=== PATIENT | male | born 1970 | race Two or more races ===

== ENCOUNTER 2017-10-05 05:01 | Inpatient (IN) | payer OTHER ==
[~2017-10-05] VITALS: Ht 170.2 cm; Wt 103.4 kg
[2017-10-05] MEDS ORDERED: ANESTHESIA TRAY IN PYXIS 1 EA TRAY MC ONE (06:45)
[2017-10-05] MEDS ORDERED: HEMOSTATIC MATRIX 10 ML 1 EACH PAD MC ONE (06:46)
[2017-10-05] MEDS ORDERED: FENTANYL PF 250MCG/5ML AMPUL ONE ×2 (07:01→07:03)
[2017-10-05] MEDS ORDERED: MIDAZOLAM HCL 2 MG/2ML VIAL ONE (07:01)
[2017-10-05] MEDS ORDERED: SUCCINYLCHOLINE CHLORIDE 20 MG/ML VIAL ONE (07:02)
[2017-10-05] MEDS ORDERED: HYDROMORPHONE INJ 2 MG/ML DISP.SYRIN ONE (07:02)
[2017-10-05] MEDS ORDERED: KETAMINE HCL (500MG/10ML) 50 MG/ML VIAL ONE (07:03)
[2017-10-05] MEDS ORDERED: ROCURONIUM BROMIDE 50 MG/5 ML ONE (07:04)
[2017-10-05] MEDS ORDERED: PROPOFOL 100 ML ONE (07:04)
[2017-10-05] MEDS ORDERED: HEPARIN SODIUM, PORCINE 5000 UNITS/1 ML VIAL ONE (07:12)
[2017-10-05] MEDS ORDERED: GENTAMICIN 80 MG/2 ML VIAL ONE ×2 (08:24→08:26)
[2017-10-05] MEDS ORDERED: THROMBIN (BOVINE) 5,000 UNITS VIAL TP ONE (08:41)
[2017-10-05] MEDS ORDERED: GELATIN SPONGE,ABSORBABLE 1 EA SPONGE TP ONE (08:41)
[2017-10-05] MEDS ORDERED: PROPOFOL 10MG/ML 50ML 50 ML IV PRN (09:00)
[2017-10-05] MEDS ORDERED: CEFAZOLIN SODIUM/DEXTROSE,ISO 50 ML IV ONE (09:05)
[2017-10-05 14:20] VITALS: BP 105/58
--- NOTE | 2017-10-05 14:20 | NUR ---
BARBER RN NOTES PATIENT RETURNED FROM SURGERY. DR TEMPLETON AT BEDSIDE. PATIENT OBTUNDED AND SEDATED STILL FROM SURGERY. PER MD PATIENT WILL BE OBTUNDED FOR A FEW HOURS HE WAS GIVEN MORE PAIN MEDICATIONS TO ASSIST WITH PAIN CONTROL. PATIENT UNABLE TO MOVE BLE AT THIS TIME. WILL MONITOR Q4H PER MD ORDER. GWEN SEVERELY WEAK AT THIS TIME. NC STABLE 96%. HOB ELEVATED FOR ASPIRATION PRECAUTIONS. WATSON IN PLACE DRAINING WELL. IV'S INTACT AND PATENT. BED ALARM ON. FAMILY AT BEDSIDE. ORDERS GIVEN BY MD AND WILL BE CARRIED OUT.
[2017-10-05 14:35] VITALS: BP 98/62
[2017-10-05 14:37] LABS: HEMATOCRIT 41 % (39-51); HEMOGLOBIN 14.1 g/dL (13.5-17.5); LYMPHOCYTES % (AUTO) 5.4 % (20.0-44.0); MEAN CORPUSCULAR HEMOGLOBIN 33 PG (26.0-33.0); MEAN CORPUSCULAR HGB CONC 35 g/dl (31.0-36.0); MEAN CORPUSCULAR VOLUME 95 fL (80-96); MONOCYTES # (AUTO) 0.7 /CMM (0.1-1.30); MONOCYTES % (AUTO) 3.7 % (2.0-12.0); NEUTROPHILS # (AUTO) 17.3 /CMM (1.8-8.9); NEUTROPHILS % (AUTO) 90.9 % (43.0-81.0); PLATELET COUNT (AUTO) 241 /CMM (150-450); RDW COEFFICIENT OF VARIATION 13.2 (11.5-15.0); RED BLOOD CELL COUNT(AUTO) 4.32 MIL/uL (4.5-6.0)
[2017-10-05 14:48] LABS: CALCIUM, SERUM 8.2 mg/dL (8.5-10.1); CREATININE 1.3 mg/dL (0.6-1.3); POTASSIUM 4.1 mmol/L (3.5-5.1)
[2017-10-05 14:50] VITALS: BP 104/61
[2017-10-05] MEDS ORDERED: ZOLPIDEM TARTRATE 5 MG TABLET PO PRN (15:00)
[2017-10-05] MEDS ORDERED: ACETAMINOPHEN 325 MG TABLET PO PRN (15:00)
[2017-10-05] MEDS ORDERED: IV PREMIX D5 NS + KCL 1,000 ML IV PRN (15:00)
[2017-10-05] MEDS ORDERED: HYDROMORPHONE 1 MG/1 ML DISP.SYRIN IV PRN (15:00)
[2017-10-05] MEDS ORDERED: HYDROCODONE/APAP 10/325MG 1 EA TABLET PO PRN ×2 (15:00)
[2017-10-05] MEDS ORDERED: DOCUSATE SODIUM 100 MG CAPSULE PO PRN (15:00)
[2017-10-05 15:05] VITALS: BP 106/63
[2017-10-05 16:00] VITALS: BP 105/56
[2017-10-05] MEDS: ANCEF 1 GM/50 ML D5W IV SCH ×4 (16:30→23:25)
[2017-10-05] MEDS ORDERED: ONDANSETRON HCL/PF 4 MG/2 ML VIAL IV PRN (16:30)
[2017-10-05] MEDS: METHOCARBAMOL (750MG) 750 MG TABLET PO SCH ×2 (16:53→20:30)
[2017-10-05] MEDS: ACETAMINOPHEN 325 MG TABLET PO SCH ×2 (16:53→21:00)
--- NOTE | 2017-10-05 17:09 | NUR ---
BARBER PECK NOTES PATIENT ABLE TO MOVE BLE AND PUSH AND PULL ON HANDS WITH FOOT. TOES MOVING. HAS SENSATION TO UPPER AND LOWER LEGS. PULSES PRESENT AND INTACT. ABLE TO INDEPENDENTLY MOVE BUE AND EQUAL STRENGTH. Addendum: 10/05/17 at 1714 by JASON MOSS RN Amended: Links added.
--- NOTE | 2017-10-05 19:17 | NUR ---
TD RN CLOSING: PATIENT AWAKE AND ALL NEEDS MET. ALL DUE MEDS GIVEN. NO EPISODE OF VOMITING. PRN ANTIEMETIC MED WAS ADMINISTERED ORDERED. ALL NEEDS IN REACH. SAFETY PRECAUTIONS OBSERVED. TELE- NSR. IV FLUID RUNNING ORDERED. PATIENT STABLE AT THIS TIME. ENDORSED TO RN FOR HORTENCIA.
[2017-10-05 20:00] VITALS: BP 125/65
[2017-10-06] VITALS: BP 104/60
[2017-10-06] MEDS: METHOCARBAMOL (750MG) 750 MG TABLET PO SCH ×6 (00:44→20:30)
[2017-10-06 04:00] VITALS: BP 113/64
[2017-10-06] MEDS: ACETAMINOPHEN 325 MG TABLET PO SCH ×3 (04:50→22:05)
[2017-10-06] MEDS ORDERED: FENTANYL PF 250MCG/5ML AMPUL ONE ×2 (06:44→06:47)
[2017-10-06] MEDS ORDERED: HYDROMORPHONE INJ 2 MG/ML DISP.SYRIN ONE (06:45)
[2017-10-06] MEDS ORDERED: SUCCINYLCHOLINE CHLORIDE 20 MG/ML VIAL ONE (06:45)
[2017-10-06] MEDS ORDERED: KETAMINE HCL (500MG/10ML) 50 MG/ML VIAL ONE (06:45)
[2017-10-06] MEDS ORDERED: PROPOFOL 100 ML ONE ×4 (06:46→13:45)
[2017-10-06] MEDS ORDERED: GENTAMICIN 80 MG/2 ML VIAL ONE (06:46)
[2017-10-06] MEDS ORDERED: ANESTHESIA TRAY IN PYXIS 1 EA TRAY MC ONE (06:48)
[2017-10-06] MEDS ORDERED: CEFAZOLIN 1 GM ONE (06:49)
[2017-10-06] MEDS ORDERED: HEMOSTATIC MATRIX 10 ML 1 EACH PAD MC ONE (06:49)
--- NOTE | 2017-10-06 07:00 | NUR ---
RN INITIAL NOTES: PT ALREADY PICKED UP BY OR STAFF FOR SCHEDULED PROCEDURE TODAY.
--- NOTE | 2017-10-06 07:00 | NUR ---
LIV INITIAL NOTES: PT SCHEDULED FOR ANTERIOR LUMBAR INTERBODY FUSIONS OF L4-S1 C/O DR. ANGUIANO TODAY. PT PICKED UP ALREADY BY OR STAFF. Addendum: 10/06/17 at 1612 by ALBA ALVARADO RN CORRECTION: ERROR ON DOCUMENTATION
[2017-10-06 07:03] LABS: CALCIUM, SERUM 8.3 mg/dL (8.5-10.1); POTASSIUM 4.5 mmol/L (3.5-5.1)
[2017-10-06 07:13] LABS: BASOPHILS % (AUTO) 0.1 % (0.0-2.0); HEMATOCRIT 38 % (39-51); LYMPHOCYTES # (AUTO) 1.5 /CMM (0.8-4.8); LYMPHOCYTES % (AUTO) 9.2 % (20.0-44.0); MEAN CORPUSCULAR HEMOGLOBIN 33 PG (26.0-33.0); MEAN CORPUSCULAR HGB CONC 35 g/dl (31.0-36.0); MEAN CORPUSCULAR VOLUME 95 fL (80-96); MONOCYTES # (AUTO) 1.3 /CMM (0.1-1.30); MONOCYTES % (AUTO) 8.3 % (2.0-12.0); NEUTROPHILS % (AUTO) 82.4 % (43.0-81.0); PLATELET COUNT (AUTO) 243 /CMM (150-450); RDW COEFFICIENT OF VARIATION 13.1 (11.5-15.0); RED BLOOD CELL COUNT(AUTO) 3.96 MIL/uL (4.5-6.0); WHITE BLOOD COUNT (AUTO) 15.7 K/uL (4.3-11.0)
[2017-10-06] MEDS ORDERED: HEPARIN SODIUM, PORCINE 5000 UNITS/1 ML VIAL ONE (07:52)
[2017-10-06] MEDS ORDERED: VANCOMYCIN 1 GM VIAL ONE ×2 (08:56→14:01)
[2017-10-06] MEDS ORDERED: FENTANYL PF 100MCG/2ML AMPUL ONE ×2 (10:57→11:01)
[2017-10-06] MEDS ORDERED: NALOXONE HCL 0.4 MG/ML AMPUL IV PRN (16:00)
[2017-10-06] MEDS ORDERED: oxyCODONE IR immediate release 5 MG PO PRN (16:00)
--- NOTE | 2017-10-06 16:16 | NUR ---
RN NOTES: PER DR. MARQUEZ, CALL HIM AT [phone] FOR ANY CONCERN. PT WILL BE ON PURIFICATION OPERATOR PUMP PLUS PO PAIN MEDICATIONS. MAY START DIET AND ADVANCE TOLERATED. WILL BE ON IV ABX ANCEF X 9 DOSES. ON SPINE PRECAUTIONS. CAN INCREASE HOB. WOUND DRESSING WILL BE DONE C/O MD. EXPECT PT TO BE DISORIENTED D/T ANESTHESIA.
[2017-10-06] MEDS: TRAMADOL HCL 50 MG TABLET PO SCH (17:00)
[2017-10-06] MEDS ORDERED: HYDROMORPHONE MDV 30 MG in IV NS 0.9% 15 ML, PCA TOTAL VOLUME 1 BAG IV PRN ×3 (17:00)
[2017-10-06] MEDS ORDERED: KEY,NONCONTROL,TO KEEP IN PYXI 1 EA MC ONE (17:15)
[2017-10-06 17:52] VITALS: BP 124/65
[2017-10-06 18:00] VITALS: BP 124/68
[2017-10-06] MEDS: Potassium Chloride 20 MEQ in IV D5/ 0.9% NACL 1,000 ML IV PRN (18:41)
--- NOTE | 2017-10-06 18:49 | NUR ---
RN CLOSING NOTES: 1752h REC'D PT FROM BEVERAGE INSPECTION MACHINE TENDER LISETH VIA BED ACCOMPANIED BY FAMILY. PT TRANSFERRED TO ROOM 101, ELIZABETH STATUS. PT IS AWAKE BUT DROWSY/SEDATED, DENIES ANY PAIN & DISCOMFORT AT THIS TIME. ON NC AT 2LPM, NO SOB, SATING AT 98%. ON TELEMONITOR, SR W/ HR 115 BPM. HAS 2 IV LINE ACCESS - R WRIST G18 AND L HAND G20, BOTH FLUSHING WELL W/ NO S/SX OF INFECTION/INFILTRATION NOTED. HAS FC DRAINING TO ADEQUATE URINE OUTPUT. NOTED CLEAN, DRY & INTACT SURGICAL DRESSING ON THE ABDOMEN. BLE NEUROVASCULAR CHECKS DONE, + PEDAL PULSES AND PT ABLE TO MOVE BLE. CARRIED OUT POST OP ORDERS OF DR. ANGUIANO. 1800h PHARMACY ANALYST PUMP DILAUDID STARTED W/ CLAU RAHMAN & NIGEL. PT & FAMILY EDUCATED ON HOW TO USE PHARMACY ANALYST PUMP W/ VERBALIZATION OF UNDERSTANDING. PT PROVIDED COMFORT & SAFETY MEASURES. BED KEPT LOW & IN LOCKED POS. CALL LIGHT PLACED W/IN REACH. WILL ENDORSE TO PM RN FOR HORTENCIA.
--- NOTE | 2017-10-06 19:30 | NUR ---
ELIZABETH RN INITIAL NOTES RECEIVED PATIENT AWAKE A/OX3, ABLE TO MAKE NEEDS KNOWN, LETHARGIC, ABLE TO ANSWER QUESTIONS. FAMILY AT BEDSIDE. DENIES N/V, DENIES PAIN OR DISCOMFORT AT THIS TIME. NO RESPIRATORY DISTRESS NOTED, ON 2LPMO2 VIA NC. SKIN WARM AND DRY TO TOUCH. ON TELE MONITOR ST 101. PATIENT ABLE TO WIGGLE TOES, PEDAL PULSED PALPABLE. WITH F/C PATENT AND INTACT, DRAINING BY GRAVITY. WITH RW 18G PATENT AND INTACT WITH D5W 20MEQ KCL AT 75 ML/HR RUNNING. WITH LH 20G PATENT AND INTACT, WITH DILAUDID 1MG/1ML, SET AT 0.5MG. PATIENT PRESSED BUTTON ONCE PER HISTORY. DR. TEMPLETON AT BEDSIDE. PER MD OK FOR PATIENT TO HAVE HOB 30 DEGREES, OK TO TURN SIDE TO SIDE FOR SHORT PERIODS. OK TO TAKE MEDICATIONS IF PATIENT IS ABLE TO DRINK WATER WITH NO COMPLICATIONS. SIDE RAILS UP AND LOCKED. BED KEPT AT LOWEST POSITION. CALL LIGHT KEPT WITHIN EASY REACH. WILL CONTINUE TO MONITOR.
[2017-10-06 20:00] VITALS: BP 125/80
[2017-10-06] MEDS: CEFAZOLIN 1 GM in IV D5W 50 ML IV SCH (21:56)
--- NOTE | 2017-10-06 22:00 | NUR ---
PATIENT MORE AWAKE, NO C/O PAIN OR DISCOMFORT. HAD PATIENT DRINK SOME WATER, PATIENT WITH NO DIFFICULTY IN SWALLOWING. WILL GIVE PO MEDICATIONS. PROVIDED TEACHING AND DEMONSTRATION OF INCENTIVE SPIROMETER, PATIENT VERBALIZED UNDERSTANDING. WILL CONTINUE TO MONITOR.
[2017-10-07] VITALS: BP 132/79
[2017-10-07] MEDS: METHOCARBAMOL (750MG) 750 MG TABLET PO SCH ×6 (00:30→20:17)
[2017-10-07] MEDS: TRAMADOL HCL 50 MG TABLET PO SCH ×3 (00:33→17:00)
--- NOTE | 2017-10-07 00:34 | NUR ---
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 WILL CONTINUE TO MONITOR.
[2017-10-07 04:00] VITALS: BP 138/88
[2017-10-07] MEDS: ACETAMINOPHEN 325 MG TABLET PO SCH ×3 (04:48→21:34)
[2017-10-07] MEDS: CEFAZOLIN 1 GM in IV D5W 50 ML IV SCH ×3 (04:48→21:34)
[2017-10-07 06:43] LABS: BASOPHILS % (AUTO) 0.3 % (0.0-2.0); HEMATOCRIT 36 % (39-51); HEMOGLOBIN 12.4 g/dL (13.5-17.5); LYMPHOCYTES # (AUTO) 1.5 /CMM (0.8-4.8); LYMPHOCYTES % (AUTO) 8.5 % (20.0-44.0); MEAN CORPUSCULAR HEMOGLOBIN 33 PG (26.0-33.0); MEAN CORPUSCULAR HGB CONC 35 g/dl (31.0-36.0); MEAN CORPUSCULAR VOLUME 95 fL (80-96); MONOCYTES # (AUTO) 1.8 /CMM (0.1-1.30); MONOCYTES % (AUTO) 10.6 % (2.0-12.0); NEUTROPHILS # (AUTO) 13.8 /CMM (1.8-8.9); NEUTROPHILS % (AUTO) 80.6 % (43.0-81.0); PLATELET COUNT (AUTO) 233 /CMM (150-450); RDW COEFFICIENT OF VARIATION 13.6 (11.5-15.0); RED BLOOD CELL COUNT(AUTO) 3.74 MIL/uL (4.5-6.0); WHITE BLOOD COUNT (AUTO) 17.1 K/uL (4.3-11.0)
--- NOTE | 2017-10-07 07:00 | NUR ---
RN CLOSING NOTES: NO ACUTE CHANGES NOTED W/IN SHIFT. DENIED ANY PAIN/DISCOMFORT THE WHOLE SHIFT. ON ROOM AIR, NO SOB. OFF TELEMONITOR. 2 IV LINE ACCESS - R WRIST G18 & R HAND G20 SL, KEPT PATENT & INTACT W/ NO S/SX OF INFECTION/INFILTRATION. OFF FC, PT ABLE TO USE URINAL W/O DIFFICULTY. STILL NOTED STRONG BILATERAL PEDAL PULSES. PT WAS ABLE TO USE I.S WHILE AWAKE. SURGICAL INCISION ON THE ABDOMEN AND BACK KEPT CLEAN, DRY & INTACT, NO DISCHARGE NOTED. PT ABLE TO MOVE INDEPENDENTLY ON BED. PT OFF PLEXIGLAS FORMER PUMP. KEPT WELL RESTED. NEEDS ATTENDED. BED KEPT LOW & IN LOCKED POS. CALL LIGHT PLACED W/IN REACH. WILL ENDORSE TO PM RN FOR HORTENCIA. REC'D CALL FROM DR. ANGUIANO AND UPDATED HIM ABOUT PT CONDITION. HE SAID HE WILL COME TODAY & VISIT THE PT. Addendum: 10/07/17 at 1922 by ALBA ALVARADO RN CORRECTION: ERROR ON DOCUMENTING TIME.
[2017-10-07 07:05] LABS: CREATININE 0.9 mg/dL (0.6-1.3); POTASSIUM 4.6 mmol/L (3.5-5.1)
--- NOTE | 2017-10-07 07:10 | NUR ---
RN INITIAL NOTES: REC'D PT AWAKE ON BED, A/O X 4, NOT IN ANY DISTRESS, DENIES ANY PAIN/DISCOMFORT AT THIS TIME. ON NC AT 2LPM, SATING AT 100%. ON TELEMONITOR, ST W/ HR 101 BPM. HAS 2 IV LINE ACCESS - R WRIST G18 W/ D5NS + 20 MEQS KCL X 75 CC/HR INFUSING WELL, R HAND G20 W/ DAIRY MANUFACTURING TECHNOLOGIST DILAUDID INFUSION. HAS FC PATENT & INTACT DRAINING TO ADEQUATE URINE OUTPUT. NOTED STRONG BILATERAL PEDAL PULSES. INSTRUCTED PT TO USE I.S EVERY HOUR WHILE AWAKE W/ VERBALIZATION OF UNDERSTANDING. SURGICAL INCISION ON THE ABDOMEN AND BACK W/ CLEAN, DRY & INTACT DRESSING, NO DISCHARGE NOTED. PROVIDED COMFORT & SAFETY MEASURES. BED KEPT LOW & IN LOCKED POS. CALL LIGHT PLACED W/IN REACH. WILL CONTINUE TO MONITOR AND ATTEND PT NEEDS.
--- NOTE | 2017-10-07 07:35 | NUR ---
ELIZABETH RN CLOSING NOTES NO SIGNIFICANT CHANGES OVERNIGHT. ALL NEEDS ANTICIPATED AND MET. NO RESPIRATORY DISTRESS NOTED. NO C/O PAIN OR DISCOMFORT. NO C/O NV. F/C IN PLACE, PATENT AND INTACT, DRAINING BY GRAVITY. IVF D5NS WITH 20MEQ KCL RUNNING AT 75ML/HR AND BRANCH OPERATION EVALUATION MANAGER DILAUDID. PATIENT USED 1.5MG/1.5ML THIS SHIFT, CLEARED VOLUME. SIDE RAILS UP AND LOCKED. BED KEPT AT LOWEST POSITION. CALL LIGHT KEPT WITHIN EASY REACH. CONTINUITY OF CARE ENDORSED TO AM NURSE.
[2017-10-07 08:00] VITALS: BP 142/92
[2017-10-07] MEDS: Potassium Chloride 20 MEQ in IV D5/ 0.9% NACL 1,000 ML IV PRN (09:18)
--- NOTE | 2017-10-07 09:30 | NUR ---
RN NOTES: PT SEEN & EXAMINED BY DR. TEMPLETON W/ NEW ORDERS MADE & CARRIED OUT. SURGICAL INCISION SEEN BY . CALLED PT FOR FOLLOW UP RE: EVAL & GAIT TRAINING.
[2017-10-07] MEDS: GABAPENTIN 300 MG CAPSULE PO SCH ×3 (11:20→17:14)
[2017-10-07 12:00] VITALS: BP 129/76
--- NOTE | 2017-10-07 12:00 | NUR ---
RN NOTES: PT REQUESTED TO DC WATSON CATHETER BECAUSE IT'S HURTING HIM. FC REMOVED, PT ABLE TO URINATE. PT SEEN BY PHYSICAL THERAPIST AND WAS ABLE TO GET PT OUT OF BED. PER THERAPIST & PT, HE FELT A LITTLE DIZZY AND LEG WEAKNESS. HE WAS ABLE TO STAND BUT WASN'T ABLE TO WALK. PER THERAPIST, PT NEEDS BACK BRACE AND RECOMMENDED ARU/SNF. P.T. RECOMMENDATION RELAYED TO DR. ABURTO W/ ORDERS TO MAXIMIZE PT GAIT TRAINING HERE WHILE PT IN THE HOSPITAL. HE WILL ASK DR. GARCIA ABOUT THE BRACE. PER DR. ABURTO, OKAY TO DC CURRENT IVF D5NS + 20 MEQS KCL X 75 CC/HR. CALLED AND PHYSICAL THERAPIST AND INFORMED HER ABOUT THE PLAN OF THE MD. PT NOT IN ANY DISTRESS AFTER THE THERAPY, DENIES ANY PAIN.
[2017-10-07 16:00] VITALS: BP 112/64
--- NOTE | 2017-10-07 16:00 | NUR ---
RN NOTES: DR. TEMPLETON MADE AWARE THAT PT IS NOT USING SPANISH LITERATURE PROFESSOR PUMP. MD ORDERED TO STOP IT. AND PER , NO NEED FOR BACK BRACE PER DR. GARCIA.
[2017-10-07] MEDS ORDERED: oxyCODONE IR immediate release 5 MG PO PRN ×2 (16:30)
[2017-10-07] MEDS ORDERED: KEY,NONCONTROL,TO KEEP IN PYXI 1 EA MC ONE (17:18)
--- NOTE | 2017-10-07 18:26 | NUR ---
RN NOTES: DR. TEMPLETON MADE AWARE THAT PT FEELS DIZZY AND SLEEP EVERYTIME HE TAKES ROBAXIN. ORDERED TO PUT HOLD FOR NOW.
--- NOTE | 2017-10-07 19:00 | NUR ---
RN CLOSING NOTES: NO ACUTE CHANGES NOTED W/IN SHIFT. DENIED ANY PAIN/DISCOMFORT THE WHOLE SHIFT. ON ROOM AIR, NO SOB. OFF TELEMONITOR. 2 IV LINE ACCESS - R WRIST G18 & R HAND G20 SL, KEPT PATENT & INTACT W/ NO S/SX OF INFECTION/INFILTRATION. OFF FC, PT ABLE TO USE URINAL W/O DIFFICULTY. STILL NOTED STRONG BILATERAL PEDAL PULSES. PT WAS ABLE TO USE I.S WHILE AWAKE. SURGICAL INCISION ON THE ABDOMEN AND BACK KEPT CLEAN, DRY & INTACT, NO DISCHARGE NOTED. PT ABLE TO MOVE INDEPENDENTLY ON BED. PT OFF MARKETING DEVELOPER PUMP. KEPT WELL RESTED. NEEDS ATTENDED. BED KEPT LOW & IN LOCKED POS. CALL LIGHT PLACED W/IN REACH. WILL ENDORSE TO PM RN FOR HORTENCIA. INFORMED RN TO HOLD GIVING ROBAXIN MEDICATION AT THIS TIME PER MD'S ORDER. REC'D CALL FROM DR. ANGUIANO AND UPDATED HIM ABOUT PT CONDITION. HE SAID HE WILL COME TODAY & VISIT THE PT.
--- NOTE | 2017-10-07 19:30 | NUR ---
MS RN INITIAL NOTE PT RECEIVED AWAKE IN BED WITH FAMILY AT BEDSIDE. A/O X4 AND ABLE TO VERBALIZE NEEDS. ON ROOM AIR AND SATURATING 97%. BREATHING REGULAR, EVEN AND UNLABORED. IV R WRIST AND L HAND ARE CLEAN, DRY AND FLUSHING WELL. NO C/O PAIN OR DISCOMFORT AT THIS TIME. SURGEON DR. ANGUIANO AT BEDSIDE WITH PT. STATED TO CONTINUE ANTIBIOTICS, PHYSICAL THERAPY AND GOING HOME THURSDAY. SURGICAL DRESSINGS IN PLACE AND CLEAN. CALL LIGHT WITHIN REACH. WILL CONTINUE TO MONITOR.
[2017-10-07 20:00] VITALS: BP 136/77
--- NOTE | 2017-10-07 20:30 | NUR ---
MS RN NOTE PT REFUSED ROBAXIN 750 MG STATING IT CAUSES DIZZINESS AND HE DOES NOT WANT TO TAKE IT. DR ANGUIANO AWARE. UPON ASSESSMENT PEDAL PULSES PALPABLE, ABLE TO PUSH BACK WITH BOTH FEET AND PT ABLE TO MOVE TOES BILATERALLY. WILL CONTINUE TO MONITOR.
--- NOTE | 2017-10-08 | NUR ---
MS RN NOTE PEDAL PULSES REMAIN PALPABLE +2 BILATERALLY AND ABLE TO MOVE TOES AROUND. NO C/O PAIN AT THIS TIME.
[2017-10-08] MEDS: METHOCARBAMOL (750MG) 750 MG TABLET PO SCH ×6 (00:04→19:59)
[2017-10-08] MEDS: TRAMADOL HCL 50 MG TABLET PO SCH ×3 (00:13→16:16)
--- NOTE | 2017-10-08 01:00 | NUR ---
MS RN NOTE PT REFUSED TRAMADOL 50MG STATING NO PAIN OR DISCOMFORT AT THIS TIME.
[2017-10-08 04:00] VITALS: BP 100/60
[2017-10-08] MEDS: ACETAMINOPHEN 325 MG TABLET PO SCH ×3 (04:12→20:03)
[2017-10-08] MEDS: CEFAZOLIN 1 GM in IV D5W 50 ML IV SCH ×3 (04:13→20:03)
--- NOTE | 2017-10-08 07:30 | NUR ---
MS RN AM NOTE PT RECEIVED AWAKE IN BED, A/O X4 AND ABLE TO VERBALIZE NEEDS. ON ROOM AIR, NOT IN ANY DISTRESS, NBREATHING REGULAR, EVEN AND UNLABORED. IV R WRIST #18 AND L HAND G20, FLUSHES WELL, SITE CLEAR. NO C/O PAIN OR DISCOMFORT AT THIS TIME. S/P L4-5, L5-S1 DISCKECTOMY BY DR ANGUIANO 10/05/2017. SURGICAL DRESSINGS IN PLACE AND CLEAN. TO CHANGE DRESSING. FOR PHYSICAL THERAPY , OPTIMIZED P.T. WHILE IN HOSPITAL, REGULAR DIET. CALL LIGHT WITHIN REACH. WILL CONTINUE TO MONITOR.
--- NOTE | 2017-10-08 07:52 | NUR ---
MS RN CLOSING NOTE PT REMAINED STABLE DURING SHIFT. PEDAL PULSES CHECKED AND PALPABLE. NO C/O PAIN NOTED. KEPT CLEAN AND DRY. ALL NEEDS ATTENDED TO PROMPTLY. NO ACUTE DISTRESS NOTED. WILL ENDORSE TO NEXT SHIFT FOR CONTINUITY OF CARE.
[2017-10-08 08:00] VITALS: BP 112/76
[2017-10-08] MEDS: GABAPENTIN 300 MG CAPSULE PO SCH ×3 (09:01→16:16)
--- NOTE | 2017-10-08 09:30 | NUR ---
MS RN NOTES ADMINISTERED DUE MEDS EXCEPT ROBAXIN AND ULTRAM
--- NOTE | 2017-10-08 11:20 | NUR ---
MS RN NOTES PER DR. ANGUIANO NO BACK BRACE NEEDED. PHYSICAL THERAPY ARIA NOTIFIED.
--- NOTE | 2017-10-08 13:21 | NUR ---
MS RN NOTES STARTED ANCEF IV. SEEN BY PHYSICAL THERAPIST EARLIER. OOB TO CHAIR.
[2017-10-08 16:00] VITALS: BP 139/87
--- NOTE | 2017-10-08 18:50 | NUR ---
MS RN CLOSING NOTE PT RESTING COMFORTABLY IN BED, A/O X4 AND ABLE TO VERBALIZE NEEDS. ON ROOM AIR, NOT IN ANY DISTRESS, BREATHING REGULAR, EVEN AND UNLABORED. IV R WRIST #18 AND L HAND G20, FLUSHES WELL, SITE CLEAR. NO C/O PAIN OR DISCOMFORT AT THIS TIME. S/P L4-5, L5-S1 DISCKECTOMY BY DR ANGUIANO 10/05/2017. SURGICAL DRESSINGS IN PLACE AND CLEAN. MD TO CHANGE DRESSING. PHYSICAL THERAPY DONE TWICE TODAY, ABLE TO WALK 250 FT AND 300 FT ACCORDINGLY, REFUSE ALL PAIN MEDICATIONS AND DR. YOKASTA PHILLIPS AWARE. REGULAR DIET. CALL LIGHT WITHIN REACH. ALL NEEDS MET, FOR POSSIBLE DC IN AM. WILL ENDORSE TO NEXT SHIFT FOR HORTENCIA.
--- NOTE | 2017-10-08 19:30 | NUR ---
RN/ MS NOTES: RECEIVED PT. IN BED A/O X 4. ABLE TO MAKE NEEDS KNOWN. DENIES ANY C/O CHEST PAIN OR SOB AT PRESENT. RA SAT. 99%. IV R WRIST #18 AND L HAND G20, PATENT AND INTACT W/ NO S/S OF INFECTION/INFILTRATION NOTED. NO C/O PAIN OR DISCOMFORT AT THIS TIME. S/P L4-5, L5-S1 DISCKECTOMY BY DR ANGUIANO 10/05/2017. SURGICAL DRESSINGS IN PLACE AND CLEAN. TO CHANGE DRESSING. FOR PHYSICAL THERAPY , OPTIMIZED P.T. WHILE IN HOSPITAL, REGULAR DIET. CALL LIGHT WITHIN REACH. WILL CONTINUE TO MONITOR.
[2017-10-08 20:00] VITALS: BP 151/79
[2017-10-09] MEDS: METHOCARBAMOL (750MG) 750 MG TABLET PO SCH ×4 (00:30→11:44)
[2017-10-09] MEDS: TRAMADOL HCL 50 MG TABLET PO SCH ×2 (00:34→09:00)
[2017-10-09 04:00] VITALS: BP 101/64
[2017-10-09] MEDS: CEFAZOLIN 1 GM in IV D5W 50 ML IV SCH ×2 (04:55→13:00)
[2017-10-09] MEDS: ACETAMINOPHEN 325 MG TABLET PO SCH ×2 (04:55→13:00)
--- NOTE | 2017-10-09 07:32 | NUR ---
RN/MS NOTES: NO ACUTE CHANGES NOTED THROUGH OUT THE SHIFT. REPORT GIVEN TO NEXT SHIFT NURSE FOR HORTENCIA.
[2017-10-09 08:00] VITALS: BP 134/88
[2017-10-09] MEDS: GABAPENTIN 300 MG CAPSULE PO SCH ×2 (09:06→13:00)
--- NOTE | 2017-10-09 09:30 | NUR ---
MS RN NOTES DUE MEDS GIVEN RECEIVED DISCHARGED ORDERS FROM DR. GARCIA THIS MORNING AND ENTERED IN THE [facility]. TO SEE PATIENT PRIOR TO DISCHARGE.
--- NOTE | 2017-10-09 13:35 | NUR ---
MS SUCTION WORKER NOTES PATIENT DISCHARGED TO HOME TODAY PER MD IN STABLE CONDITION. PROVIDED DC INSTRUCTIONS, MED PRESCRIPTION AND HEALTH TEACHINGS. LEFT WRIST AND L HAND IV ACCESS REMOVED, CATH TIP COMPLETE, NO BLEEDING, DRESSING IN PLACE. SEEN BY DR. ANGUIANO, DRESSING CHANGED. REFUSED PHOTOS. PATIENT TO FOLLOW UP WITH PCP IN 1-2 WEEKS AND WILL MAKE OWN APPOINTMENT. ALL BELONGINGS CHECKED AND RETURNED. ALL PAPERWORKS SIGNED. ASSISTED BY FRANCK RAMIREZ TO LOBBY VIA WHEELCHAIR TO GO HOME VIA PRIVATE CAR BY FATHER.
== END 2017-10-09 19:11 | disposition home or self-care (01) | DRG 454 ==
LOC: DS 05:01 → MEDSG1 05:04 → OBSVTOIN 05:04 → TELE-TD 14:27 → MEDSG1 10-07 10:41
PROVIDERS: ADMIT Specialist; ATTEND Specialist
DX: M43.16 Spondylolisthesis, lumbar region (principal); R71.0 Precipitous drop in hematocrit; E66.8 Other obesity; M48.07 Spinal stenosis, lumbosacral region; M51.37 Other intervertebral disc degeneration, lumbosacral region; Z68.35 Body mass index [BMI] 35.0-35.9, adult; M51.26 Other intervertebral disc displacement, lumbar region; M51.27 Other intervertebral disc displacement, lumbosacral region; Q05.8 Sacral spina bifida without hydrocephalus; V64.5XXA Driver of heavy transport vehicle injured in collision with heavy transport vehicle or bus in traffic accident, initial encounter; Y93.89 Activity, other specified; Y92.411 Interstate highway as the place of occurrence of the external cause; Y99.0 Civilian activity done for income or pay
CPT/HCPCS: 36415; 72020-TC; 72100-TC; 80048-TC; 85025-TC; 86850-TC; 86921-TC; 88304-TC; 88305-TC; 88311-TC; 97112-TC; 97116-TC; 97530-TC; A4216; A4606; A6402; J0330; J0690; J1100; J1170; J1580; J1644; J2001; J2250; J2370; J2405; J2704; J3010; J3370; J3480; J3490; J7042; J7050; J7060